=== PATIENT | female | born 1980 | race Caucasian/White ===

== ENCOUNTER 2021-03-12 14:15 | Outpatient (CLI) | payer OTHER, SELFPAY | END 2021-03-12 14:16 | disposition home or self-care (01) | LOC: ANHCOVIDVC 14:15 | DX: Z23 Encounter for immunization (principal) | CPT/HCPCS: 0001A; 91300 ==

== ENCOUNTER 2021-04-02 14:15 | Outpatient (CLI) | payer OTHER, SELFPAY | END 2021-04-02 14:16 | disposition home or self-care (01) | LOC: ANHCOVIDVC 14:15 | DX: Z23 Encounter for immunization (principal) | CPT/HCPCS: 0002A; 91300 ==